=== PATIENT | female | born 1985 | race Caucasian/White ===

== ENCOUNTER → 2020-12-31 10:17 | Outpatient (CLI) | payer OTHER, SELFPAY ==
--- NOTE | ~2020-12-31 | US_ITS ---
EXAMINATION: US thyroid DATE: 12/31/2020 10:36 INDICATION: Thyroid nodule. Bilateral thyroidectomy due to goiters. TECHNIQUE: Multiple ultrasound images of the thyroid were obtained. COMPARISON: None. FINDINGS/IMPRESSION: Postoperative change of prior complete thyroidectomy with no nodules or abnormal soft tissue identifi ed at the left and right thyroid fossae. Reviewed, dictated and finalized at location A.
== END ==
DX: E04.1 Nontoxic single thyroid nodule (principal)
CPT/HCPCS: 76536

== ENCOUNTER 2024-03-06 08:51 | Outpatient (CLI) | payer OTHER, SELFPAY ==
--- NOTE | ~2024-03-06 | US_ITS ---
Limited Abdominal Sonogram: Real-time sonographic imaging of the right upper quadrant was performed. Clinical History: Abnormal liver enzyme levels Findings: The liver appears echogenic, with no evidence of mass lesion or bile duct dilatation. Main portal vein demonstrates normal direction of flow. The gallbladder is well distended, and appears no rmal with no evidence of gallstone or wall thickening. The common bile duct measures 4 mm. The visua lized pancreas, aorta, and IVC are unremarkable. Impression: Diffuse fatty infiltration of the liver. Reviewed, dictated and finalized at location M. ELER Impression: Diffuse fatty infiltration of the liver.
== END 2024-03-06 08:52 | disposition home or self-care (01) ==
DX: K76.0 Fatty (change of) liver, not elsewhere classified (principal); R74.01 Elevation of levels of liver transaminase levels
CPT/HCPCS: 76705

== ENCOUNTER 2025-02-06 00:18 | Day surgery (SDC) | payer OTHER, SELFPAY ==
[2025-01-30 10:45] VITALS: BMI 35.7
--- NOTE | 2025-01-31 12:13 | PC.NURSE ---
[facility] has started construction of its new state of the art ER which will open Spring 2026. With this, we anticipate parking may be a challenge for some our surgical patients and families. Parking spaces are limited but are available for all Surgical, obstetrics, and ER patients sharing this lot. If you arrive and find you are having a hard time finding a parking space, please note that we understand the challenges, please drive around the hospital and park near Hospital Entrance 1. When you enter this entrance, you can ask a volunteer to direct or take you back to the surgical waiting area to check in. We appreciate everyone?s understanding of these expected challenges while we build for your future. Report to the Outpatient Waiting Room, entrance under the green pavilion located off [address], at time 1130 on date 02/06/25. Planned Procedure Time: 1330.? Time changes happen often and if your time is changed the preop area will call you the afternoon before. - You and your visitor will be asked to self-screen and do not enter if you have any COVID symptoms. Please call surgeon if you need to reschedule. - A mask is optional within the hospital at this time. Patients may have clear liquids (water, carbonated beverages, clear teas, apple juice) until 3 hours prior to surgery (1030) with a maximum of 20 ounces. - No food from midnight until time of surgery and no smoking, or chewing tobacco (or any form of nicotine). No chewing gum, candy or mints. Take only the following medications with a SIP of water on the morning of surgery: buspirone, thyroid DO NOT STOP ANY OF YOUR OTHER PRESCRIPTION MEDICATIONS PRIOR TO SURGERY EXCEPT THE FOLLOWING Hold all vitamins and supplements for 3 days per anesthesiologist. Medications to discontinue per physician: N/A Date to take last dose: N/A Please no make-up, nail nepalese, hairspray, perfume, deodorant, or body powder the day of surgery.? No jewelry (including any body piercings) or valuables the day of surgery, leave them at home.? Please take a shower or bath the night before, or the morning of, surgery with an antibacterial soap.? Wear comfortable, loose fitting clothing.? Children are encouraged to wear pajamas. - Jewelry must be removed prior to entering the operating room.? Rings and piercings that are not removed may be cut off. - The hospital will not accept responsibility for valuables.? - Please leave all valuables, including medications, at home the day of surgery. If you are going home after surgery, a licensed warehouse driver must drive you home.? - NO public transportation without another adult if you receive anesthesia. - We recommend that an adult stay with you for 24 hours following discharge. - We also recommend that you do not drive, make important decision, drink alcoholic beverages, or take any drugs that were not prescribed by your health care provider for at least 24 hours after your discharge time. Follow any additional instructions given to you from your surgeon. Telephone instructions given to hany Logan and asked if any additional questions and then verbalized understanding. Patient advised to call surgeon office or pre surgery nurse liaison [phone] if any additional questions.
[2025-02-06] VITALS (7 sets, daily range): BP systolic 100–139; BP diastolic 63–95; PULSE 69–89; RESP 12–18; TEMP 36.1–36.5; O2SAT 94–100; BMI 36.0
--- NOTE | 2025-02-06 11:46 | ECG_ITS ---
Test Date: 2025-02-06 12:08:37 Measurements Intervals [place] Rate: 68 P: 27 AR: 172 QRS: -15 QRSD: 104 T: 15 QT: 399 QTc: 425 Interpretive Statements SINUS RHYTHM DELAYED PRECORDIAL R/S TRANSITION LOW QRS VOLTAGE IN PRECORDIAL LEADS BASELINE ARTIFACT- V4-V6 BORDERLINE ECG No previous ECG available for comparison Electronically Signed On 02-06-2025 12:24:48 CDT by Leroy Rodriguez D.O.
[2025-02-06] MEDS: KETOROLAC 15 MG/ML VIAL (*BKC) IV PUSH (12:10)
[2025-02-06] MEDS: LACTATED RINGERS 1,000 ML 30 ML IV CONT (12:10)
[2025-02-06] MEDS: ACETAMINOPHEN 500 MG TABLET 1000 MG PO (12:10)
[2025-02-06 12:24] LABS: BEDSIDEPREGUCG Negative (Negative)
--- NOTE | 2025-02-06 13:06 | P.PNAN_ITS ---
Anes - Initial Pre Proc Eval Procedure: Operation Date: 02/06/25 13:30 Proposed Procedures p Right Carpal Tunnel Release - Viraj Bowen MD Date/Time: 02/06/25 13:06 Surgeon: Viraj Bowen MD Pre Op Diagnosis: Right Carpal Tunnel Syn Patient Data Age: 39 Gender: F Height: 1.64 m Weight: 96.8 kg Last Vital Signs Temp 36.5 C 02/06/25 12:20 Pulse 84 02/06/25 12:20 BP 139/85 02/06/25 12:20 Pulse Ox 99 02/06/25 12:20 O2 Del Method Room Air 02/06/25 12:20 Allergies Allergy/AdvReac Type Severity Reaction Status Date / Time amoxicillin (From Augmentin) Allergy Unknown Hives Verified 02/06/25 12:16 cephalexin Allergy Unknown Hives Verified 02/06/25 12:16 clavulanic acid (From Allergy Unknown Hives Verified 02/06/25 12:16 Augmentin) Penicillins Allergy Unknown Hives Verified 02/06/25 12:16 wheat Allergy Unknown Migraine Verified 02/06/25 12:16 Home Medications ?Medication ?Instructions ?Recorded ?Confirmed ?Type buspirone 10 mg tablet 10 mg PO BID 10/17/24 History rosuvastatin 10 mg tablet (Crestor) 10 mg PO DAILY 01/30/25 History thyroid (pork) 30 mg tablet (LINE TENDER 90 mg PO DAILY 5 02/06/25 History Thyroid) cetirizine 10 mg tablet (Zyrtec) 10 mg PO DAILY PRN al lergic 12/23/24 01/30/25 History symptoms hydrocodone 5 mg-acetaminophen 325 1 - 2 tablet PO Q4- 6H PRN pain 7 02/06/25 Rx mg tablet days #20 tabs Laboratory Tests 02/06/25 12:20 POC Urine HCG, Qual Negative (Negative) Patient hx anesthesia problems: none Family hx anesthesia problems: none Results Review: All pre-operative results and documents have been reviewed as part of the pre- operative evaluation. [facility] Past Medical History Medical History Metabolic dysfunction-associated steatotic liver disease (MASLD) (~09/27/24) Right sided sciatica Mixed anxiety and depressive disorder Mixed hyperlipidemia Dizzy spells Palpitations Migraine Hypothyroidism Surgical History Surgical History History of mandibular surgery History of gynecologic surgery History of thyroidectomy Social History Social History Smoking status: Never smoker Substance use: never Substance use type: does not use Do You Feel Safe in your Home?: Yes Lack of Transportation: No Lack of Food: Never True Current Housing: I Have Housing Concerned About Future Housing: No Difficulty Paying Gas/Electric Bills: No Difficulty Paying for Meds: No Currently Unemployed: No Education: Associate Degree Difficulty w/ Childcare or Family Care: No Living arrangements: with family Spiritual care concerns: No Anes - Eval Final PreProcedure Day of Procedure 02/06/25 13:06 Patient weight: obese Heart: regular rate and rhythm Lungs: clear to auscultation Airway: Mallampati scale class II Neurological: alert and oriented Last oral intake: >/= 8 hours ASA classification: III Emergent: no Anesthetic plan: proceed Anesthesia type and monitoring: general GIVS and standard monitoring Results Review: All pre-operative results and documents have been reviewed as part of the pre- operative evaluation. Informed Consent: The patient's anesthetic plan and its attendant risks and benefits were discussed with the patient/family/POA. Questions were solicited and answers provided to the satisfaction of the patient/family/POA.
--- NOTE | 2025-02-06 13:31 | WPDHPUPDATE1 ---
History and Physical Update Update Date/Time: 02/06/25 13:31 History and Physical has been reviewed, including an updated exam of the patient. There are NO changes in the patient's condition. Risks, benefits, and alternatives have been discussed and questions answered. Patient agrees to proceed with procedure.
[2025-02-06] MEDS: BUPIVACAINE/EPINEPHRINE 0.5% 50 ML VIAL 20 ML INFILTRATE (13:51)
--- NOTE | 2025-02-06 15:58 | P.OP_ITS ---
Procedure Note - Detailed Date of Procedure 02/06/25 Pre-op Diagnosis Right Carpal Tunnel Syndrome Post-op Diagnosis Same Procedure Performed Right Carpal tunnel release Surgeon Viraj Bowen MD Chief Of Hospital Medicine Inga Love PA-C Anesthesia General Description of Procedure Operative details. After sedation was administer, the hand was prepped and draped in the usual sterile fashion. The proposed incision was marked using typical anatomic landmarks. 4ML 0.5% Marcaine with epinephrine was injected along the incision line and at the distal forearm. The limb was exsanguinated and the tourniquet inflated to 250 millimeters of mercury. A longitudinal incision was taken sharply. Dissection was brought down to the transverse carpal ligament. Under direct vision the ligament was incised sharply. The proximal release was carried out with dissection scissors. The contents of the carpal canal were protected with a [place] elevator. The transverse carpal ligament was confirmed to be widely patent. The wound was closed with interrupted 3-0 Prolene suture. A sterile bulky dressing was placed. Patient was brought to the recovery room in stable condition. Estimated Blood Loss 1 Pathology None sent Complications No immediate complications Condition Stable Disposition PACU [facility] Billing Surgery - Charge Forward: Surgery Billing
== END 2025-02-06 15:50 | disposition home or self-care (01) ==
PROVIDERS: Anesthesiology; Visit Provider Orthopaedic Surgery
PROC: (CPT 64721; principal; 2025-02-06 13:30)
DX: G56.01 Carpal tunnel syndrome, right upper limb (principal); E78.2 Mixed hyperlipidemia; E03.9 Hypothyroidism, unspecified; R00.2 Palpitations; E88.9 Metabolic disorder, unspecified; F41.8 Other specified anxiety disorders; E66.9 Obesity, unspecified; Z68.36 Body mass index [BMI] 36.0-36.9, adult; Z79.891 Long term (current) use of opiate analgesic; Z98.890 Other specified postprocedural states
CPT/HCPCS: 64721; 93005; A9270; J1100; J1885; J2003; J2250; J2405; J2704; J3010; J7120